=== PATIENT | male | born 1960 | race Caucasian/White ===

== ENCOUNTER 2019-08-01 07:02 | Day surgery (SDC) | payer OTHER ==
[2019-08-01] MEDS ORDERED: PROPOFOL 200 MG/20 ML VIAL IVP ONE (07:03)
[2019-08-01] MEDS ORDERED: DEXAMETHASONE 4 MG/ML VIAL IVP ONE ×2 (07:03)
[2019-08-01] MEDS ORDERED: ONDANSETRON 4 MG/2 ML VIAL IVP ONE (07:03)
[2019-08-01] MEDS ORDERED: KETAMINE 500 MG/10 ML VIAL IVP ONE (07:03)
[2019-08-01] MEDS ORDERED: LACTATED RINGERS 1,000 ML IV ONE ×2 (07:08→09:56)
--- NOTE | 2019-08-01 07:38 | ANESTHESIA ---
Pre-Anesthesia VS, & Labs - Diagnosis rectal bleeding - Procedure EUA, hemorrhoidectomy Vital Signs: Temp Pulse Resp BP Pulse Ox 37 C 58 L 16 177/102 H 96 08/01/19 07:10 08/01/19 07:10 08/01/19 07:10 08/01/19 07:10 08/01/19 07:10 Height 5 ft 10 in Weight (kg) 93 kg Home Medications and Allergies Home Medications: Ambulatory Orders No Known Home Medications 07/19/19 No Known Home Medications 07/19/19 Allergies/Adverse Reactions: Allergies Allergy/AdvReac Type Severity Reaction Status Date / Time No Known Drug Allergies Allergy Verified 07/19/19 14:54 Anes History & Medical History - Anesthetic History Anesthesia Complications: reports: No previous complications Family history of Anesthesia Complications: Denies Family history of Malignant Hyperthermia: Denies - Medical History Cardiovascular: reports: Hypertension, Murmur Pulmonary: reports: Asthma (does not use inhaler.) Gastrointestinal: reports: None, Other (remote history of gastric ulcers" in 70s") Urinary: reports: None Neuro: reports: None Musculoskeletal: reports: None Endocrine/Autoimmune: reports: None Skin: reports: None Smoking Status: Former smoker (quit 25 years ago) Psychosocial: reports: No issues indicated - Surgical History General: EGD Eyes Ears Nose Throat (EENT): Tonsil/Adenoidectomy Urologic: Prostatic surgery Exam General: Alert, Oriented x3, Cooperative, No acute distress Mouth Openin Fingerbreadth Neck Mobility: Normal Mallampati classification: II Thyromental Distance: 4-6 cm Respiratory: Lungs clear, Normal breath sounds, No respiratory distress, No accessory muscle use Cardiovascular: Regular rate, Normal S1, Normal S2, No murmurs Abdomen: Normal bowel sounds, Soft, No tenderness, No hepatospenomegaly, No masses Extremities: No clubbing, No cyanosis, No edema, Normal pulses, No tenderness/swelling Neurological: Normal gait, Normal speech, Strength at 5/5 X4 ext, Normal tone, Sensation intact, Cranial nerves 3-12 NL, Reflexes 2+ Mental/Cognitive Status: Alert/Oriented X3, Normal for patient Cognitive Status: Within normal limits Plan Anesthesia Type: General Consent for Procedure(s) Verified and Reviewed: Yes Code Status: Attempt Resuscitation ASA classification: 2-Mild systemic disease Is this case an emergency?: No
[2019-08-01] MEDS ORDERED: CEFOTETAN DISODIUM 1 GM VIAL ONE (07:48)
[2019-08-01] MEDS ORDERED: LIDOCAINE 1%-EPI 1:100000 30 ML MDV SUBQ ONE (09:52)
[2019-08-01] MEDS ORDERED: BUPIVACAINE 0.5% PF 30 ML VIAL SUBQ ONE (09:52)
[2019-08-01] MEDS ORDERED: BUPIVACAINE 0.5% PF 30 ML VIAL ONE (09:53)
[2019-08-01] MEDS ORDERED: LIDOCAINE MPF 1%-EPI 1:200000 30 ML VIAL ONE (09:53)
[2019-08-01 11:36] VITALS: BP 173/98
== END 2019-08-01 07:03 | disposition home or self-care (01) ==
LOC: SDS 07:02
PROVIDERS: ATTEND Surgery
PROC: 065Y3ZC Destruction of Hemorrhoidal Plexus, Percutaneous Approach (ICD-10-PCS; principal; 2019-08-01 08:30)
PROC: 0DJD8ZZ Inspection of Lower Intestinal Tract, Via Natural or Artificial Opening Endoscopic (ICD-10-PCS; 2019-08-01 08:30)
DX: Z12.11 Encounter for screening for malignant neoplasm of colon (principal); K64.2 Third degree hemorrhoids; I10 Essential (primary) hypertension; J45.909 Unspecified asthma, uncomplicated; Z87.891 Personal history of nicotine dependence
CPT/HCPCS: 45378; 46930; J7120